=== PATIENT | female | born 1980 | race Caucasian/White ===

== ENCOUNTER 2018-01-27 15:15 | Emergency (ER) | END 2018-01-27 19:50 | disposition home or self-care (01) ==

== ENCOUNTER 2018-07-18 05:21 | Emergency (ER) | payer OTHER ==
[~2018-07-18] VITALS: Ht 154.9 cm; Wt 99.8 kg
[~2018-07-18 05:21] MED LIST: CEPH-443 PO; CIPR500T4 PO; CYCL10TA7 PO; HYDR-3498 PO; IBUP-1542 PO; LORA-441 PO; PHEN-538 PO
[2018-07-18 05:25] VITALS: Ht 154.9 cm; Wt 99.8 kg
[2018-07-18] MEDS ORDERED: KETOROLAC 30 MG INJ IM STA (06:24)
--- NOTE | 2018-07-18 06:36 | ERD ---
ER Documentation Chief Complaint Chief Complaint RIGHT FLANK PAIN X 3 DAYS, NAUSEA, DYSURIA HPI 37-year-old female with no prior medical history presents with complaint of right flank pain as well as greenish brownish vaginal discharge for the past 3 days. She also complains of dysuria without hematuria. She states that she is also been nauseous but denies vomiting, diarrhea, abdominal pain. Denies fevers, chills. States the pain in her flank is 7 out of 10 and is intermittent in nature. Nonradiating. Denies past medical history. Denies allergies. Denies medications. Denies surgeries. Denies alcohol, tobacco, drug use. Up to date on vaccines. ROS All systems reviewed and are negative except as per history of present illness. Medications Home Meds Active Scripts Ciprofloxacin Hcl* (Ciprofloxacin Hcl*) 500 Mg Tablet, 500 MG PO BID for pyelonephritis for 10 Days, TAB Prov:BOUCHRA POWELL 07/18/18 Cephalexin* (Keflex*) 500 Mg Capsule, 500 MG PO BID for 7 Days, CAP Prov:ELDER CARTAGENA 01/27/18 Lorazepam* (Ativan*) 0.5 Mg Tablet, 0.5 MG PO Q8, #10 TAB Prov:ELDER CARTAGENA 01/27/18 Hydrocodone Bit-Acetaminophen* (Hopkins*) 5-325 Mg Tab, 1 TAB PO Q6 PRN for SEVERE PAIN LEVEL 7-10, #20 TAB Prov:RUPESH HWANG [employer] 07/04/15 Ibuprofen* (Motrin*) 600 Mg Tab, 600 MG PO Q6H PRN for PAIN AND OR ELEVATED TEMP, #30 TAB Prov:RUPESH HWANG NP 07/04/15 Cyclobenzaprine Hcl* (Cyclobenzaprine Hcl*) 10 Mg Tablet, 5 MG PO TID for MUSCLE SPASMS, #15 TAB Prov:RUPESH HWANG NP 07/04/15 Phenazopyridine Hcl* (Pyridium*) 200 Mg Tab, 200 MG PO TID PRN for DYSURIA, #6 TAB Prov:RUPESH HWANG NP 07/04/15 Ciprofloxacin Hcl* (Ciprofloxacin Hcl*) 500 Mg Tablet, 500 MG PO BID for 10 Days, TAB Prov:RUPESH HWANG NP 07/04/15 Reported Medications [none] Unknown Strength No Conflict Check 07/04/15 Allergies Allergies: Coded Allergies: No Known Allergy (Unverified , 07/04/15) PMhx/Soc Medical and Surgical Hx: pt denies Medical Hx, pt denies Surgical Hx Hx Alcohol Use: No Hx Substance Use: No Hx Tobacco Use: No FmHx Family History: No diabetes, No coronary disease, No other Physical Exam Vitals Vital Signs Date Temp Pulse Resp B/P (MAP) Pulse Ox O2 O2 Flow FiO2 Time Delivery Rate 07/18/18 98.3 18 124/71 Room Air 09:49 (88) 07/18/18 100.6 91 16 145/73 99 05:25 (97) Physical Exam Const: No acute distress Head: Atraumatic Eyes: Normal Conjunctiva ENT: Normal External Ears, Nose and Mouth. Neck: Full range of motion. No meningismus. Resp: Clear to auscultation bilaterally Cardio: Regular rate and rhythm, no murmurs Abd: Soft, non tender, non distended. Normal bowel sounds. Right sided CVA tenderness. : Cervix is pink and non friable. No trauma or bleeding noted. Thick yellow discharge noted. Skin: No petechiae or rashes Back: No midline or flank tenderness Ext: No cyanosis, or edema Neur: Awake and alert Psych: Normal Mood and Affect Result Diagram: 07/18/18 0641 07/18/18 0641 Results 24 hrs Laboratory Tests Test 07/18/18 06:41 White Blood Count 4.9 10^3/ul Red Blood Count 4.03 10^6/ul Hemoglobin 11.0 g/dl Hematocrit 34.7 % Mean Corpuscular Volume 86.1 fl Mean Corpuscular Hemoglobin 27.3 pg Mean Corpuscular Hemoglobin Concent 31.7 g/dl Red Cell Distribution Width 15.0 % Platelet Count 209 10^3/UL Mean Platelet Volume 11.5 fl Immature Granulocytes % 0.400 % Neutrophils % 77.5 % Lymphocytes % 13.4 % Monocytes % 6.7 % Eosinophils % 1.4 % Basophils % 0.6 % Nucleated Red Blood Cells % 0.0 /100WBC Immature Granulocytes # 0.020 10^3/ul Neutrophils # 3.8 10^3/ul Lymphocytes # 0.7 10^3/ul Monocytes # 0.3 10^3/ul Eosinophils # 0.1 10^3/ul Basophils # 0.0 10^3/ul Nucleated Red Blood Cells # 0.0 10^3/ul Urine Color YELLOW Urine Clarity CLOUDY Urine pH 5.0 Urine Specific [place] 1.025 Urine Ketones NEGATIVE mg/dL Urine Nitrite NEGATIVE mg/dL Urine Bilirubin NEGATIVE mg/dL Urine Urobilinogen NEGATIVE mg/dL Urine Leukocyte Esterase 2+ Jasmin/ul Urine Microscopic RBC 2 /HPF Urine Microscopic WBC 8 /HPF Urine Squamous Epithelial Cells FEW /HPF Urine Bacteria FEW /HPF Urine Mucus FEW /HPF Urine Hemoglobin 1+ mg/dL Urine Glucose NEGATIVE mg/dL Urine Total Protein NEGATIVE mg/dl Sodium Level 139 mmol/L Potassium Level 4.4 mmol/L Chloride Level 104 mmol/L Carbon Dioxide Level 27 mmol/L Anion Gap 8 Blood Urea Nitrogen 15 mg/dl Creatinine 0.54 mg/dl Est Glomerular Filtrat Rate mL/min > 60 mL/min Glucose Level 104 mg/dl Calcium Level 9.2 mg/dl Total Bilirubin 0.8 mg/dl Direct Bilirubin 0.00 mg/dl Indirect Bilirubin 0.8 mg/dl Aspartate Amino Transf (AST/SGOT) 25 IU/L Alanine Aminotransferase (ALT/SGPT) 18 IU/L Alkaline Phosphatase 77 IU/L Total Protein 7.4 g/dl Albumin 4.1 g/dl Globulin 3.30 g/dl Albumin/Globulin Ratio 1.24 Lipase 145 U/L POC Beta HCG, Qualitative NEGATIVE Chlamydia trachomatis RNA (TMA) NOT DETECTED Chlamydia/GC Comment SEE NOTE Neisseria gonorrhoeae RNA (TMA) NOT DETECTED Current Medications Medications Dose Sig/Gilbert Start Time Status Last (Trade) Ordered Route PRN Stop Time Admin Dose Reason Admin Ketorolac 30 mg ONCE STAT 07/18/18 DC 07/18/18 Tromethamine IM 06:24 06:47 (Toradol) 07/18/18 06:31 Procedures/MDM DIAGNOSTIC IMAGING REPORT Patient: LESLIE BURK : 1980 Age: 37 Sex: F MR #: [id number] DOS: 07/18/18 0636 Ordering MD: BOUCHRA POWELL Location: [facility] Room/Bed: PROCEDURE: ULTRASOUND ABDOMEN RIGHT LOWER QUADRANT CLINICAL INDICATION: 37-year-old female with right lower quadrant pain. TECHNIQUE: Multiple sonographic images of the right lower quadrant of the abdomen utilizing a linear ray transducer and graded compressive sonography. The images were reviewed on a high-resolution PACS workstation. COMPARISON: None. FINDINGS: The appendix is not visualized. There is no evidence for areas of abnormal echogenicity or free fluid within the right lower quadrant to suggest appendicitis. IMPRESSION: No sonographic evidence for appendicitis. Note however that the appendix was not directly visualized. Clinical correlation is necessary. .Damion Wyatt MD, MD Date Time Electronically viewed and signed by .Damion Wyatt MD, MD on 07/18/2018 07:48 .M/ CC: BOUCHRA POWELL [phone] DIAGNOSTIC IMAGING REPORT Patient: LESLIE BURK : 1980 Age: 37 Sex: F MR #: [id number] DOS: 07/18/18 0636 Ordering MD: BOUCHRA POWELL Location: [facility] Room/Bed: PROCEDURE: ULTRASOUND RENAL CLINICAL INDICATION: 37-year-old female with right flank pain. TECHNIQUE: Multiple sonographic images of the kidneys were obtained. The images were reviewed on a PACS workstation. COMPARISON: None. FINDINGS: The kidneys are well visualized. The right kidney measures 11.4 x 4.0 cm. The left kidney measures 10.7 x 5.3 cm. There are no focal areas of abnormal echogenicity. There is no evidence for obstructive uropathy. The urinary bladder is decompressed and not well visualized. IMPRESSION: Unremarkable renal ultrasound. .Damion Wyatt MD, MD Date Time Electronically viewed and signed by .Damion Wyatt MD, MD on 07/18/2018 07:36 .M/ CC: BOUCHRA POWELL [phone] ER course: CBC, CMP, fungal and urogenital wet mount, UA, GC, limited ultrasound. UA positive for UTI. All others WNL. 37-year-old female with no prior medical history presents with complaint of right flank pain as well as greenish brownish vaginal discharge for the past 3 days. She also complains of dysuria without hematuria. She states that she is also been nauseous but denies vomiting, diarrhea, abdominal pain. Denies fevers, chills. States the pain in her flank is 7 out of 10 and is intermittent in nature. Nonradiating. Pelvic and right flank ultrasounds were performed, results within normal limits. UA showed UTI. Wet ilir were within normal limits. Based on physical exam and clinical findings, patient's presentation is consistent with possible pyelonephritis. Patient treated with course of ciprofloxacin. Low suspicion for AAA, appendicitis, ovarian torsion, cho lecystitis, acute pancreatitis, or other emergent condition. Patient discharged with strict ER precautions. Patient advised to follow up with PMD. All questions answered at discharge. Departure Diagnosis: Primary Impression: Pyelonephritis Condition: Stable BOUCHRA POWELL Jul 18, 2018 06:36
[2018-07-18] MEDS ORDERED: CIPR500T4 PO (09:36)
[2018-07-18 09:49] VITALS: BP 124/71; RESP 18
== END 2018-07-18 09:51 | disposition home or self-care (01) ==
LOC: FTE 05:21
DX: N12 Tubulo-interstitial nephritis, not specified as acute or chronic (principal)
CPT/HCPCS: 76705; 76775; 80053; 81001; 81025; 83690; 85025; 87210; 87591; 96372; J1885; Z7502